=== PATIENT | male | born 2000 | race Caucasian/White ===

== ENCOUNTER 2020-10-03 00:13 | Emergency (ER) | payer OTHER ==
[2020-10-03] MEDS ORDERED: Azithromycin 250 MG Tab PO ONE (01:00)
--- NOTE | 2020-10-03 01:06 | EDM.PDOC ---
ED HPI GENERAL MEDICAL PROBLEM - General Chief Complaint: ENT Problem Stated Complaint: THROAT PAIN Time Seen by Provider: 10/03/20 00:41 - History of Present Illness INITIAL COMMENTS - FREE TEXT/NARRATIVE: HISTORY AND PHYSICAL: History of present illness: This is a 20-year-old gentleman with no significant past medical history presents ER today secondary to sore throat greatest on the left side. Patient denies any recent fevers, shakes, chills, nausea, vomiting, diarrhea, dysuria, frequency, urgency, chest pain, shortness of breath. Patient denies any recent Covid exposures. Patient has any cough cold or rhinorrhea. Review of systems: As per history of present illness and below otherwise all systems reviewed and negative. Past medical history: As per history of present illness and as reviewed below otherwise n oncontributory. Surgical history: As per history of present illness and as reviewed below otherwise noncontributory. Social history: No reported history of drug or alcohol abuse. Family history: As per history of present illness and as reviewed below otherwise noncontributory. Physical exam: Constitutional: Patient is oriented to person, place, and time. Appears well- developed and well-nourished. No distress. HEENT: Moist mucous membranes, patient with erythema to his bilateral pharynx with left greater than right. Patient has mild enlarged tender left-sided submandibular lymphadenopathy. Patient has no trismus. Head: Normocephalic and atraumatic Eyes: Right eye exhibits no discharge. Left eye exhibits no discharge. No scleral icterus Neck: Normal range of motion. No tracheal deviation present. Cardiovascular: Normal rate and regular rhythm. Pulmonary: Effort normal, no respiratory distress. Abdominal: No distention Musculoskeletal: Normal range of motion Neurologic: Alert and oriented to person, place and time. Skin: [place], warm and dry. Psychiatric: Normal mood and affect. Behavior is normal. Judgment and thought content normal. Nursing note and vital signs have been reviewed This patient was seen and evaluated during the 2019 SARS-CoV-2 novel coronavirus pandemic period. Community viral transmission is ongoing at time of this encounter and the emergency department is operating under pandemic response procedures. Diagnostics: Strep screen Therapeutics: Zithromax Assessment and plan: This is a 20-year-old gentleman who presents ER today secondary to sore throat. Patient has a strep screen pending. Given patient's symptoms and his pharyngeal erythema and tender lymphadenopathy patient will get started for empiric treatment of strep throat. Patient be given Zithromax as well as ibuprofen to assist with his pain. Reassessment at the time of disposition demonstrates that the patient is in no acute distress. The patient has remained stable throughout the entire ED visit and is without objective evidence for acute process requiring urgent intervention or hospitalization. The patient is stable for discharge, counseling is provided as documented above, discussed symptomatic treatment and specific conditions for return. I have spoken with the patient/caregiver and discussed todays findings, in addition to providing specific details for the plan of care. Questions are answered and there is agreement with the plan. Definitive disposition and diagnosis as appropriate pending reevaluation and review of above. throat Pain Score (Numeric/FACES): 8 - Related Data Allergies Allergy/AdvReac Type Severity Reaction Status Date / Time No Known Allergies Allergy Verified 10/03/20 00:26 Home Meds: Home Meds Azithromycin [Zithromax] 250 mg PO DAILY #4 tablet 10/03/20 [Rx] Ibuprofen 600 mg PO Q6HR PRN #30 tablet 10/03/20 [Rx] Past Medical History - Past Health History Medical/Surgical History: Denies Medical/Surgical History HEENT History: Reports: None Cardiovascular History: Reports: None Respiratory History: Reports: None Gastrointestinal History: Reports: None Genitourinary History: Reports: None Musculoskeletal History: Reports: None Neurological History: Reports: None Psychiatric History: Reports: None Endocrine/Metabolic History: Reports: None 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 Hematologic History: Reports: None Immunologic History: Reports: None Oncologic (Cancer) History: Reports: None Dermatologic History: Reports: None - Infectious Disease History Infectious Disease History: Reports: None - Past Surgical History Head Surgeries/Procedures: Reports: None Social & Family History - Family History Family Medical History: No Pertinent Family History - Caffeine Use Caffeine Use: Reports: Coffee, Energy Drinks, Soda - Recreational Drug Use Recreational Drug Use: No ED ROS GENERAL - Review of Systems Review Of Systems: See Below ED EXAM, GENERAL - Physical Exam Exam: See Below Course - Vital Signs Last Recorded V/S: Last Vital Signs Temp 97.4 F 10/03/20 00:25 Pulse 69 10/03/20 00:25 Resp 18 10/03/20 00:25 BP 119/72 10/03/20 00:25 Pulse Ox 97 10/03/20 00:25 - Orders/Labs/Meds Orders: Active Orders 24 hr Category Date Time Status STREP A BY PCR [[facility]] Stat Lab 10/03/20 00:20 Received Meds: Medications Discontinued Medications Generic Name Dose Route Start Last Admin Trade Name Keisha PRN Reason Stop Dose Admin Azithromycin 500 mg 10/03/20 01:00 Zithromax PO 10/03/20 01:01 Q24H ONE Departure - Departure Time of Disposition: 01:04 Disposition: Home, Self-Care 01 Condition: Good Clinical Impression: Pharyngitis Qualifiers: Pharyngitis/tonsillitis etiology: unspecified etiology Qualified Code(s): J02.9 - Acute pharyngitis, unspecified - Discharge Information Instructions: Pharyngitis Referrals: Claudia Skelton DO [Primary Care Provider] - Additional Instructions: Your seen and evaluated in the ER today secondary to a sore throat. Given the redness to the back your throat and the swollen lymph node on the left side, you will get started on antibiotics. You have been given your first dose here in the ED and will be given a prescription they should start tomorrow. You will be given a prescription for Zithromax 250 mg daily for the next 4 days as well as ibuprofen to assist with pain. The following information is given to patients seen in the emergency department who are being discharged to home. This information is to outline your options for follow-up care. We provide all patients seen in our emergency department with a follow-up referral. The need for follow-up, as well as the timing and circumstances, are variable depending upon the specifics of your emergency department visit. If you don't have a primary care physician on staff, we will provide you with a referral. We always advise you to contact your personal physician following an emergency department visit to inform them of the circumstance of the visit and for follow-up with them and/or the need for any referrals to a consulting specialist. The emergency department will also refer you to a specialist when appropriate. This referral assures that you have the opportunity for follow-up care with a specialist. All of these measure are taken in an effort to provide you with optimal care, which includes your follow-up. Under all circumstances we always encourage you to contact your private physician who remains a resource for coordinating your care. When calling for follow-up care, please make the office aware that this follow-up is from your re cent emergency room visit. If for any reason you are refused follow-up, please contact the [facility] Emergency Department at and asked to speak to the emergency department charge nurse. [facility] [address] [place] [id number] [facility] [place] [place] [address] [place] [id number] Sepsis Event Note (ED) - Evaluation Sepsis Screening Result: No Definite Risk - Focused Exam Vital Signs: Vital Signs Temp Pulse Resp BP Pulse Ox 10/03/20 00:25 97.4 F 69 18 119/72 97 - My Orders Last 24 Hours: My Active Orders 10/03/20 00:20 STREP A BY PCR [MOLEC] Stat - Assessment/Plan Last 24 Hours: My Active Orders 10/03/20 00:20 STREP A BY PCR [MOLEC] Stat
[2020-10-03 01:27] VITALS: BP 103/54; PULSE 70
== END 2020-10-03 01:25 | disposition home or self-care (01) ==
LOC: MW.ED 00:13
DX: J02.9 Acute pharyngitis, unspecified (principal)
CPT/HCPCS: 87651; 99283; A9270

== ENCOUNTER 2023-08-02 08:35 | Emergency (ER) | payer OTHER ==
[2023-08-02 09:17] VITALS: BP 136/76
[2023-08-02] MEDS ORDERED: Cephalexin 500 MG Cap PO ONE (09:35)
[2023-08-02 10:20] VITALS: PULSE 68
== END 2023-08-02 10:20 | disposition home or self-care (01) ==
LOC: MW.ED 08:35
DX: S89.91XA Unspecified injury of right lower leg, initial encounter (principal); L03.115 Cellulitis of right lower limb; X58.XXXA Exposure to other specified factors, initial encounter; Y99.0 Civilian activity done for income or pay
CPT/HCPCS: 73562; 99283; A9270

== ENCOUNTER 2025-04-07 12:29 | Emergency (ER) | payer OTHER ==
[2025-04-07 14:23] VITALS: BP 115/73; PULSE 72
== END 2025-04-07 14:26 | disposition home or self-care (01) ==
LOC: MW.ED 12:29
DX: M25.562 Pain in left knee (principal); Z75.3 Unavailability and inaccessibility of health-care facilities
CPT/HCPCS: 73564; 99283; A9270; 99282